=== PATIENT | male | born 1960 | race Caucasian/White ===

== ENCOUNTER 2023-01-08 15:27 | Inpatient (IN) | payer OTHER ==
[2023-01-08 16:34] VITALS: BMI 26.0
[2023-01-08] MEDS ORDERED: NICOTINE POLACRILEX 2 MG GUM BUC PRN (20:31)
[2023-01-08] MEDS ORDERED: ACETAMINOPHEN 325 MG TABLET (FP) PO PRN (20:31)
[2023-01-08] MEDS ORDERED: LOPERAMIDE HCL 2 MG CAPSULE PO PRN (20:31)
[2023-01-08] MEDS ORDERED: guaiFENesin 600 MG TABLET.ER (FP) PO PRN (20:31)
[2023-01-08] MEDS ORDERED: IBUPROFEN 600 MG TABLET (FP) PO PRN (20:31)
[2023-01-08] MEDS ORDERED: POLYETHYLENE GLYCOL (HEALTHYLAX) 3350 17 GM PACKET PO PRN (20:31)
[2023-01-08] MEDS ORDERED: AMMONIUM LACTATE 12% LOTION 225 GM BOTTLE TP PRN (20:31)
[2023-01-08] MEDS ORDERED: P-EPHED 60MG/TRIPROLIDI 2.5MG TABLET PO PRN (20:31)
[2023-01-08] MEDS ORDERED: MAGNESIUM HYDROX 2400MG/30ML ORAL SUSPENSION 30 ML CUP PO PRN (20:31)
[2023-01-08] MEDS ORDERED: IBUPROFEN 400 MG TABLET (FP) PO PRN (20:31)
[2023-01-08] MEDS ORDERED: COLLOIDAL OATMEAL 1 BAR EACH TP PRN (20:31)
[2023-01-08] MEDS ORDERED: BENZOCAINE/MENTHOL (CHLORASEPTIC ) LOZENGE MM PRN (20:31)
[2023-01-08] MEDS ORDERED: hydrOXYzine PAMOATE 25 MG CAPSULE (FP) PO PRN (20:31)
[2023-01-08] MEDS ORDERED: BENZONATATE 200 MG CAPSULE PO PRN (20:31)
[2023-01-08] MEDS ORDERED: DOXEPIN HCL 50 MG CAPSULE PO ONE (22:00)
[2023-01-08] MEDS ORDERED: QUEtiapine FUMARATE 50 MG TABLET PO ONE (22:00)
[2023-01-08] MEDS ORDERED: DOXEPIN HCL 25 MG CAPSULE PO ONE (22:00)
[2023-01-08] MEDS ORDERED: TUBERCULIN PPD 5 TU/0.1ML VIAL ID ONE (22:10)
[2023-01-08] MEDS: MELATONIN 5 MG TABLETS PO SCH (22:13)
[2023-01-08] MEDS: ATORVASTATIN CA 10 MG TABLET (FP) PO SCH (22:13)
[2023-01-08] MEDS: THIAMINE HCL 100 MG TABLET (FP) PO SCH (22:13)
[2023-01-08] MEDS ORDERED: TUBERCULIN PPD 5 TU/0.1ML SYRINGE (IN PATIENT USE ONLY) ID ONE (23:00)
[2023-01-09] MEDS: BICTEGRAV/EMTRICIT/TENOFOV (BIKTARVY) 50-200-25 MG TABLET PO SCH (07:27)
[2023-01-09] MEDS ORDERED: LOSARTAN POTASSIUM 25 MG TABLET PO SCH (10:00)
[2023-01-09] MEDS: PRENATAL VITAMINS W/ FOLIC ACID TABLET (FP) PO SCH (10:21)
[2023-01-09 11:04] LABS: HEMATOCRIT 41.1 % (35.4-49); HEMOGLOBIN 13.6 GM/dL (11.7-16.9); MCH 28.4 pg (25.7-33.7); MEAN CELL VOLUME 86.1 fl (80-96); MEAN PLT VOLUME 8.3 fl (7.5-11.1); PLATELET COUNT 150 10^3/uL (134-434); RBC 4.77 M/mm3 (4.00-5.60); RDW 13.8 % (11.9-15.9); WHITE BLOOD COUNT 3.2 K/mm3 (4.0-10.0)
[2023-01-09 11:53] LABS: CALCIUM 8.9 mg/dL (8.5-10.1)
[2023-01-09 11:54] LABS: ALBUMIN 3.1 g/dl (3.4-5.0); BLOOD UREA NITROGEN 19.9 mg/dL (7-18)
[2023-01-09 11:57] LABS: CREATININE 0.9 mg/dL (0.55-1.3)
[2023-01-09 11:59] LABS: BILIRUBIN,TOTAL 0.4 mg/dL (0.2-1); TOT PROT 6.3 g/dl (6.4-8.2)
[2023-01-09] MEDS: DIVALPROEX SODIUM 500 MG TABLET E.C. PO SCH (21:21)
[2023-01-09] MEDS: ATORVASTATIN CA 10 MG TABLET (FP) PO SCH (21:21)
[2023-01-09] MEDS: DOXEPIN HCL 25 MG CAPSULE PO SCH (21:21)
[2023-01-09] MEDS: MELATONIN 5 MG TABLETS PO SCH (21:23)
[2023-01-09] MEDS: THIAMINE HCL 100 MG TABLET (FP) PO SCH (21:23)
[2023-01-09] MEDS: QUEtiapine FUMARATE 50 MG TABLET PO SCH (21:23)
[2023-01-09] MEDS: HALOPERIDOL 5 MG TABLET PO SCH (21:23)
[2023-01-09] MEDS: BENZTROPINE MESYLATE 1 MG TABLET PO SCH (21:24)
[2023-01-09] MEDS ORDERED: DIVALPROEX NA *ER* EXTEND REL 500 MG TABLET.SA (FP) PO SCH (22:00)
[2023-01-10] MEDS: BICTEGRAV/EMTRICIT/TENOFOV (BIKTARVY) 50-200-25 MG TABLET PO SCH (07:14)
[2023-01-10] MEDS: PRENATAL VITAMINS W/ FOLIC ACID TABLET (FP) PO SCH (10:21)
[2023-01-10] MEDS: MELATONIN 5 MG TABLETS PO SCH (21:19)
[2023-01-10] MEDS: HALOPERIDOL 5 MG TABLET PO SCH (21:19)
[2023-01-10] MEDS: THIAMINE HCL 100 MG TABLET (FP) PO SCH (21:20)
[2023-01-10] MEDS: BENZTROPINE MESYLATE 1 MG TABLET PO SCH (21:20)
[2023-01-10] MEDS: ATORVASTATIN CA 10 MG TABLET (FP) PO SCH (21:20)
[2023-01-10] MEDS: QUEtiapine FUMARATE 50 MG TABLET PO SCH (21:20)
[2023-01-10] MEDS: DIVALPROEX SODIUM 500 MG TABLET E.C. PO SCH (21:20)
[2023-01-10] MEDS: LOSARTAN POTASSIUM 25 MG TABLET PO SCH (21:20)
[2023-01-10] MEDS: DOXEPIN HCL 25 MG CAPSULE PO SCH (23:50)
[2023-01-11] MEDS: BICTEGRAV/EMTRICIT/TENOFOV (BIKTARVY) 50-200-25 MG TABLET PO SCH (07:06)
[2023-01-11] MEDS: PRENATAL VITAMINS W/ FOLIC ACID TABLET (FP) PO SCH (10:12)
[2023-01-11 12:16] LABS: URINE APPEARANCE CLEAR; URINE BILIRUBIN NEGATIVE (NEGATIVE); URINE COLOR YELLOW; URINE GLUCOSE (UA) NEGATIVE (NEGATIVE); URINE KETONE NEGATIVE (NEGATIVE); URINE LEUK ESTERASE NEGATIVE (NEGATIVE); URINE NITRITE NEGATIVE (NEGATIVE); URINE PROTEIN NEGATIVE (NEGATIVE); URINE UROBILINOGEN 0.2 mg/dL (0.2-1.0)
[2023-01-11] MEDS: DIVALPROEX SODIUM 500 MG TABLET E.C. PO SCH (21:37)
[2023-01-11] MEDS: ATORVASTATIN CA 10 MG TABLET (FP) PO SCH (21:37)
[2023-01-11] MEDS: LOSARTAN POTASSIUM 25 MG TABLET PO SCH (21:38)
[2023-01-11] MEDS: MELATONIN 5 MG TABLETS PO SCH (21:38)
[2023-01-11] MEDS: HALOPERIDOL 5 MG TABLET PO SCH (21:38)
[2023-01-11] MEDS: THIAMINE HCL 100 MG TABLET (FP) PO SCH (21:38)
[2023-01-11] MEDS: QUEtiapine FUMARATE 50 MG TABLET PO SCH (21:38)
[2023-01-11] MEDS: DOXEPIN HCL 25 MG CAPSULE PO SCH (21:38)
[2023-01-11] MEDS: BENZTROPINE MESYLATE 1 MG TABLET PO SCH (21:38)
[2023-01-12] MEDS: BICTEGRAV/EMTRICIT/TENOFOV (BIKTARVY) 50-200-25 MG TABLET PO SCH (07:20)
[2023-01-12] MEDS: PRENATAL VITAMINS W/ FOLIC ACID TABLET (FP) PO SCH (10:06)
[2023-01-12] MEDS: HALOPERIDOL 5 MG TABLET PO SCH (21:10)
[2023-01-12] MEDS: DIVALPROEX SODIUM 500 MG TABLET E.C. PO SCH (21:10)
[2023-01-12] MEDS: BENZTROPINE MESYLATE 1 MG TABLET PO SCH (21:10)
[2023-01-12] MEDS: DOXEPIN HCL 25 MG CAPSULE PO SCH (21:10)
[2023-01-12] MEDS: ATORVASTATIN CA 10 MG TABLET (FP) PO SCH (21:10)
[2023-01-12] MEDS: QUEtiapine FUMARATE 50 MG TABLET PO SCH (21:11)
[2023-01-12] MEDS: LOSARTAN POTASSIUM 25 MG TABLET PO SCH (21:11)
[2023-01-12] MEDS: MELATONIN 5 MG TABLETS PO SCH (21:12)
[2023-01-12] MEDS: THIAMINE HCL 100 MG TABLET (FP) PO SCH (21:12)
[2023-01-13] MEDS: BICTEGRAV/EMTRICIT/TENOFOV (BIKTARVY) 50-200-25 MG TABLET PO SCH (07:09)
[2023-01-13] MEDS: PRENATAL VITAMINS W/ FOLIC ACID TABLET (FP) PO SCH (10:17)
[2023-01-13] MEDS: DIVALPROEX SODIUM 500 MG TABLET E.C. PO SCH (21:01)
[2023-01-13] MEDS: LOSARTAN POTASSIUM 25 MG TABLET PO SCH (21:01)
[2023-01-13] MEDS: DOXEPIN HCL 25 MG CAPSULE PO SCH (21:01)
[2023-01-13] MEDS: BENZTROPINE MESYLATE 1 MG TABLET PO SCH (21:02)
[2023-01-13] MEDS: THIAMINE HCL 100 MG TABLET (FP) PO SCH (21:02)
[2023-01-13] MEDS: ATORVASTATIN CA 10 MG TABLET (FP) PO SCH (21:02)
[2023-01-13] MEDS: MELATONIN 5 MG TABLETS PO SCH (21:02)
[2023-01-13] MEDS: QUEtiapine FUMARATE 50 MG TABLET PO SCH (21:02)
[2023-01-13] MEDS: HALOPERIDOL 5 MG TABLET PO SCH (21:02)
[2023-01-14] MEDS: BICTEGRAV/EMTRICIT/TENOFOV (BIKTARVY) 50-200-25 MG TABLET PO SCH (07:06)
[2023-01-14] MEDS: PRENATAL VITAMINS W/ FOLIC ACID TABLET (FP) PO SCH (10:13)
[2023-01-14] MEDS: MELATONIN 5 MG TABLETS PO SCH (21:43)
[2023-01-14] MEDS: THIAMINE HCL 100 MG TABLET (FP) PO SCH (21:44)
[2023-01-14] MEDS: HALOPERIDOL 5 MG TABLET PO SCH (21:44)
[2023-01-14] MEDS: ATORVASTATIN CA 10 MG TABLET (FP) PO SCH (21:44)
[2023-01-14] MEDS: BENZTROPINE MESYLATE 1 MG TABLET PO SCH (21:44)
[2023-01-14] MEDS: QUEtiapine FUMARATE 50 MG TABLET PO SCH (21:44)
[2023-01-14] MEDS: LOSARTAN POTASSIUM 25 MG TABLET PO SCH (21:45)
[2023-01-14] MEDS: DIVALPROEX SODIUM 500 MG TABLET E.C. PO SCH (21:45)
[2023-01-14] MEDS: DOXEPIN HCL 25 MG CAPSULE PO SCH (21:47)
[2023-01-15] MEDS: BICTEGRAV/EMTRICIT/TENOFOV (BIKTARVY) 50-200-25 MG TABLET PO SCH (07:09)
[2023-01-15] MEDS: PRENATAL VITAMINS W/ FOLIC ACID TABLET (FP) PO SCH (10:17)
[2023-01-15] MEDS: LOSARTAN POTASSIUM 25 MG TABLET PO SCH (21:22)
[2023-01-15] MEDS: ATORVASTATIN CA 10 MG TABLET (FP) PO SCH (21:22)
[2023-01-15] MEDS: DIVALPROEX SODIUM 500 MG TABLET E.C. PO SCH (21:22)
[2023-01-15] MEDS: THIAMINE HCL 100 MG TABLET (FP) PO SCH (21:23)
[2023-01-15] MEDS: MELATONIN 5 MG TABLETS PO SCH (21:23)
[2023-01-15] MEDS: QUEtiapine FUMARATE 50 MG TABLET PO SCH (21:23)
[2023-01-15] MEDS: BENZTROPINE MESYLATE 1 MG TABLET PO SCH (21:23)
[2023-01-15] MEDS: HALOPERIDOL 5 MG TABLET PO SCH (21:23)
[2023-01-15] MEDS: DOXEPIN HCL 25 MG CAPSULE PO SCH (23:50)
[2023-01-16] MEDS: BICTEGRAV/EMTRICIT/TENOFOV (BIKTARVY) 50-200-25 MG TABLET PO SCH (07:06)
[2023-01-16] MEDS: PRENATAL VITAMINS W/ FOLIC ACID TABLET (FP) PO SCH (10:01)
[2023-01-16] MEDS: ATORVASTATIN CA 10 MG TABLET (FP) PO SCH (21:09)
[2023-01-16] MEDS: BENZTROPINE MESYLATE 1 MG TABLET PO SCH (21:09)
[2023-01-16] MEDS: DIVALPROEX SODIUM 500 MG TABLET E.C. PO SCH (21:09)
[2023-01-16] MEDS: QUEtiapine FUMARATE 50 MG TABLET PO SCH (21:09)
[2023-01-16] MEDS: DOXEPIN HCL 25 MG CAPSULE PO SCH (21:10)
[2023-01-16] MEDS: THIAMINE HCL 100 MG TABLET (FP) PO SCH (21:10)
[2023-01-16] MEDS: HALOPERIDOL 5 MG TABLET PO SCH (21:10)
[2023-01-16] MEDS: LOSARTAN POTASSIUM 25 MG TABLET PO SCH (21:10)
[2023-01-16] MEDS: MELATONIN 5 MG TABLETS PO SCH (21:12)
[2023-01-17] MEDS: BICTEGRAV/EMTRICIT/TENOFOV (BIKTARVY) 50-200-25 MG TABLET PO SCH (07:26)
[2023-01-17] MEDS: PRENATAL VITAMINS W/ FOLIC ACID TABLET (FP) PO SCH (09:21)
[2023-01-17] MEDS: DOXEPIN HCL 25 MG CAPSULE PO SCH (21:02)
[2023-01-17] MEDS: DIVALPROEX SODIUM 500 MG TABLET E.C. PO SCH (21:02)
[2023-01-17] MEDS: HALOPERIDOL 5 MG TABLET PO SCH (21:03)
[2023-01-17] MEDS: ATORVASTATIN CA 10 MG TABLET (FP) PO SCH (21:03)
[2023-01-17] MEDS: LOSARTAN POTASSIUM 25 MG TABLET PO SCH (21:03)
[2023-01-17] MEDS: QUEtiapine FUMARATE 50 MG TABLET PO SCH (21:03)
[2023-01-17] MEDS: THIAMINE HCL 100 MG TABLET (FP) PO SCH (21:04)
[2023-01-17] MEDS: MELATONIN 5 MG TABLETS PO SCH (21:04)
[2023-01-17] MEDS: BENZTROPINE MESYLATE 1 MG TABLET PO SCH (21:04)
[2023-01-18] MEDS: BICTEGRAV/EMTRICIT/TENOFOV (BIKTARVY) 50-200-25 MG TABLET PO SCH (07:50)
[2023-01-18] MEDS: PRENATAL VITAMINS W/ FOLIC ACID TABLET (FP) PO SCH (09:39)
[2023-01-18] MEDS: DIVALPROEX SODIUM 500 MG TABLET E.C. PO SCH (21:05)
[2023-01-18] MEDS: BENZTROPINE MESYLATE 1 MG TABLET PO SCH (21:05)
[2023-01-18] MEDS: HALOPERIDOL 5 MG TABLET PO SCH (21:05)
[2023-01-18] MEDS: LOSARTAN POTASSIUM 25 MG TABLET PO SCH (21:05)
[2023-01-18] MEDS: QUEtiapine FUMARATE 50 MG TABLET PO SCH (21:05)
[2023-01-18] MEDS: ATORVASTATIN CA 10 MG TABLET (FP) PO SCH (21:05)
[2023-01-18] MEDS: MELATONIN 5 MG TABLETS PO SCH (21:05)
[2023-01-18] MEDS: THIAMINE HCL 100 MG TABLET (FP) PO SCH (21:05)
[2023-01-18] MEDS: DOXEPIN HCL 25 MG CAPSULE PO SCH (21:05)
[2023-01-19] MEDS: BICTEGRAV/EMTRICIT/TENOFOV (BIKTARVY) 50-200-25 MG TABLET PO SCH (07:14)
[2023-01-19] MEDS: PRENATAL VITAMINS W/ FOLIC ACID TABLET (FP) PO SCH (09:43)
[2023-01-19] MEDS: MELATONIN 5 MG TABLETS PO SCH (21:22)
[2023-01-19] MEDS: THIAMINE HCL 100 MG TABLET (FP) PO SCH (21:22)
[2023-01-19] MEDS: DOXEPIN HCL 25 MG CAPSULE PO SCH (21:23)
[2023-01-19] MEDS: BENZTROPINE MESYLATE 1 MG TABLET PO SCH (21:23)
[2023-01-19] MEDS: QUEtiapine FUMARATE 50 MG TABLET PO SCH (21:23)
[2023-01-19] MEDS: LOSARTAN POTASSIUM 25 MG TABLET PO SCH (21:23)
[2023-01-19] MEDS: HALOPERIDOL 5 MG TABLET PO SCH (21:23)
[2023-01-19] MEDS: ATORVASTATIN CA 10 MG TABLET (FP) PO SCH (21:23)
[2023-01-19] MEDS: DIVALPROEX SODIUM 500 MG TABLET E.C. PO SCH (21:25)
[2023-01-20] MEDS: BICTEGRAV/EMTRICIT/TENOFOV (BIKTARVY) 50-200-25 MG TABLET PO SCH (07:00)
[2023-01-20] MEDS: PRENATAL VITAMINS W/ FOLIC ACID TABLET (FP) PO SCH (09:49)
[2023-01-20] MEDS: BENZTROPINE MESYLATE 1 MG TABLET PO SCH (21:09)
[2023-01-20] MEDS: DIVALPROEX SODIUM 500 MG TABLET E.C. PO SCH (21:09)
[2023-01-20] MEDS: ATORVASTATIN CA 10 MG TABLET (FP) PO SCH (21:09)
[2023-01-20] MEDS: QUEtiapine FUMARATE 50 MG TABLET PO SCH (21:09)
[2023-01-20] MEDS: HALOPERIDOL 5 MG TABLET PO SCH (21:09)
[2023-01-20] MEDS: LOSARTAN POTASSIUM 25 MG TABLET PO SCH (21:09)
[2023-01-20] MEDS: THIAMINE HCL 100 MG TABLET (FP) PO SCH (21:10)
[2023-01-20] MEDS: MELATONIN 5 MG TABLETS PO SCH (21:10)
[2023-01-20] MEDS: DOXEPIN HCL 25 MG CAPSULE PO SCH (21:10)
[2023-01-21] MEDS: BICTEGRAV/EMTRICIT/TENOFOV (BIKTARVY) 50-200-25 MG TABLET PO SCH (07:04)
[2023-01-21] MEDS: PRENATAL VITAMINS W/ FOLIC ACID TABLET (FP) PO SCH (09:16)
[2023-01-21] MEDS: MELATONIN 5 MG TABLETS PO SCH (21:00)
[2023-01-21] MEDS: THIAMINE HCL 100 MG TABLET (FP) PO SCH (21:00)
[2023-01-21] MEDS: ATORVASTATIN CA 10 MG TABLET (FP) PO SCH (21:01)
[2023-01-21] MEDS: DOXEPIN HCL 25 MG CAPSULE PO SCH (21:01)
[2023-01-21] MEDS: LOSARTAN POTASSIUM 25 MG TABLET PO SCH (21:01)
[2023-01-21] MEDS: DIVALPROEX SODIUM 500 MG TABLET E.C. PO SCH (21:01)
[2023-01-21] MEDS: BENZTROPINE MESYLATE 1 MG TABLET PO SCH (21:01)
[2023-01-21] MEDS: QUEtiapine FUMARATE 50 MG TABLET PO SCH (21:01)
[2023-01-21] MEDS: HALOPERIDOL 5 MG TABLET PO SCH (21:01)
[2023-01-22] MEDS: BICTEGRAV/EMTRICIT/TENOFOV (BIKTARVY) 50-200-25 MG TABLET PO SCH (07:36)
[2023-01-22] MEDS: PRENATAL VITAMINS W/ FOLIC ACID TABLET (FP) PO SCH (10:31)
[2023-01-22] MEDS: DOXEPIN HCL 25 MG CAPSULE PO SCH (21:16)
[2023-01-22] MEDS: ATORVASTATIN CA 10 MG TABLET (FP) PO SCH (21:16)
[2023-01-22] MEDS: DIVALPROEX SODIUM 500 MG TABLET E.C. PO SCH (21:16)
[2023-01-22] MEDS: HALOPERIDOL 5 MG TABLET PO SCH (21:17)
[2023-01-22] MEDS: LOSARTAN POTASSIUM 25 MG TABLET PO SCH (21:17)
[2023-01-22] MEDS: THIAMINE HCL 100 MG TABLET (FP) PO SCH (21:17)
[2023-01-22] MEDS: BENZTROPINE MESYLATE 1 MG TABLET PO SCH (21:17)
[2023-01-22] MEDS: MELATONIN 5 MG TABLETS PO SCH (21:17)
[2023-01-22] MEDS: QUEtiapine FUMARATE 50 MG TABLET PO SCH (21:17)
[2023-01-22] MEDS: MAG HYDROX/AL HYDROX/SIMETH 30 ML UNIT-DOSE CUP PO PRN (22:05)
[2023-01-23] MEDS: BICTEGRAV/EMTRICIT/TENOFOV (BIKTARVY) 50-200-25 MG TABLET PO SCH (07:12)
[2023-01-23] MEDS: PRENATAL VITAMINS W/ FOLIC ACID TABLET (FP) PO SCH (09:45)
[2023-01-23] MEDS: VARENICLINE TARTRATE 0.5 MG TAB PO SCH (10:23)
[2023-01-23] MEDS: MAG HYDROX/AL HYDROX/SIMETH 30 ML UNIT-DOSE CUP PO PRN (18:50)
[2023-01-23] MEDS: DOXEPIN HCL 25 MG CAPSULE PO SCH (21:14)
[2023-01-23] MEDS: ATORVASTATIN CA 10 MG TABLET (FP) PO SCH (21:14)
[2023-01-23] MEDS: BENZTROPINE MESYLATE 1 MG TABLET PO SCH (21:14)
[2023-01-23] MEDS: THIAMINE HCL 100 MG TABLET (FP) PO SCH (21:14)
[2023-01-23] MEDS: QUEtiapine FUMARATE 100 MG TABLET (FP) PO SCH (21:15)
[2023-01-23] MEDS: DIVALPROEX SODIUM 500 MG TABLET E.C. PO SCH (21:15)
[2023-01-23] MEDS: HALOPERIDOL 5 MG TABLET PO SCH (21:15)
[2023-01-23] MEDS: LOSARTAN POTASSIUM 25 MG TABLET PO SCH (21:15)
[2023-01-23] MEDS: MELATONIN 5 MG TABLETS PO SCH (21:15)
[2023-01-24] MEDS: BICTEGRAV/EMTRICIT/TENOFOV (BIKTARVY) 50-200-25 MG TABLET PO SCH (07:28)
[2023-01-24] MEDS: VARENICLINE TARTRATE 0.5 MG TAB PO SCH (10:57)
[2023-01-24] MEDS: PRENATAL VITAMINS W/ FOLIC ACID TABLET (FP) PO SCH (10:58)
[2023-01-24] MEDS: DIVALPROEX SODIUM 500 MG TABLET E.C. PO SCH (21:18)
[2023-01-24] MEDS: MELATONIN 5 MG TABLETS PO SCH (21:18)
[2023-01-24] MEDS: DOXEPIN HCL 25 MG CAPSULE PO SCH (21:18)
[2023-01-24] MEDS: THIAMINE HCL 100 MG TABLET (FP) PO SCH (21:18)
[2023-01-24] MEDS: BENZTROPINE MESYLATE 1 MG TABLET PO SCH (21:19)
[2023-01-24] MEDS: QUEtiapine FUMARATE 100 MG TABLET (FP) PO SCH (21:19)
[2023-01-24] MEDS: ATORVASTATIN CA 10 MG TABLET (FP) PO SCH (21:19)
[2023-01-24] MEDS: LOSARTAN POTASSIUM 25 MG TABLET PO SCH (21:19)
[2023-01-24] MEDS: HALOPERIDOL 5 MG TABLET PO SCH (21:19)
[2023-01-25] MEDS: BICTEGRAV/EMTRICIT/TENOFOV (BIKTARVY) 50-200-25 MG TABLET PO SCH (07:13)
[2023-01-25] MEDS: PRENATAL VITAMINS W/ FOLIC ACID TABLET (FP) PO SCH (09:29)
[2023-01-25] MEDS: VARENICLINE TARTRATE 0.5 MG TAB PO SCH (09:29)
[2023-01-25] MEDS: DOXEPIN HCL 25 MG CAPSULE PO SCH (21:15)
[2023-01-25] MEDS: HALOPERIDOL 5 MG TABLET PO SCH (21:15)
[2023-01-25] MEDS: BENZTROPINE MESYLATE 1 MG TABLET PO SCH (21:15)
[2023-01-25] MEDS: ATORVASTATIN CA 10 MG TABLET (FP) PO SCH (21:15)
[2023-01-25] MEDS: QUEtiapine FUMARATE 100 MG TABLET (FP) PO SCH (21:15)
[2023-01-25] MEDS: DIVALPROEX SODIUM 500 MG TABLET E.C. PO SCH (21:15)
[2023-01-25] MEDS: MELATONIN 5 MG TABLETS PO SCH (21:16)
[2023-01-25] MEDS: LOSARTAN POTASSIUM 25 MG TABLET PO SCH (21:16)
[2023-01-25] MEDS: THIAMINE HCL 100 MG TABLET (FP) PO SCH (21:16)
[2023-01-26 06:56] VITALS: RESP 18; TEMP 97.1
[2023-01-26] MEDS: BICTEGRAV/EMTRICIT/TENOFOV (BIKTARVY) 50-200-25 MG TABLET PO SCH (07:40)
[2023-01-26] MEDS: PRENATAL VITAMINS W/ FOLIC ACID TABLET (FP) PO SCH (10:26)
[2023-01-26] MEDS: VARENICLINE TARTRATE 0.5 MG TAB PO SCH (10:26)
[2023-01-26] MEDS: MAG HYDROX/AL HYDROX/SIMETH 30 ML UNIT-DOSE CUP PO PRN (17:25)
[2023-01-26] MEDS: DIVALPROEX SODIUM 500 MG TABLET E.C. PO SCH (21:01)
[2023-01-26] MEDS: ATORVASTATIN CA 10 MG TABLET (FP) PO SCH (21:01)
[2023-01-26] MEDS: MELATONIN 5 MG TABLETS PO SCH (21:01)
[2023-01-26] MEDS: HALOPERIDOL 5 MG TABLET PO SCH (21:01)
[2023-01-26] MEDS: QUEtiapine FUMARATE 100 MG TABLET (FP) PO SCH (21:01)
[2023-01-26] MEDS: THIAMINE HCL 100 MG TABLET (FP) PO SCH (21:02)
[2023-01-26] MEDS: DOXEPIN HCL 25 MG CAPSULE PO SCH (21:02)
[2023-01-26] MEDS: BENZTROPINE MESYLATE 1 MG TABLET PO SCH (21:02)
[2023-01-26] MEDS: LOSARTAN POTASSIUM 25 MG TABLET PO SCH (21:02)
[2023-01-27] MEDS: BICTEGRAV/EMTRICIT/TENOFOV (BIKTARVY) 50-200-25 MG TABLET PO SCH (07:15)
[2023-01-27 08:37] VITALS: BP 118/83; PULSE 73
[2023-01-27] MEDS ORDERED: VARENICLINE TARTRATE 0.5 MG TAB PO SCH (10:00)
[2023-01-31] MEDS ORDERED: VARENICLINE TARTRATE 1 MG TAB PO SCH (10:00)
== END 2023-01-27 09:18 | disposition home or self-care (01) | DRG 895 ==
LOC: YASAS 15:27 → Y3W 21:10
PROVIDERS: ADMIT Allergy & Immunology; ATTEND Psychiatry & Neurology Pain Medicine
PROC: HZ42ZZZ Group Counseling for Substance Abuse Treatment, Cognitive-Behavioral (ICD-10-PCS; principal; 2023-01-08)
DX: F14.20 Cocaine dependence, uncomplicated (principal); F17.210 Nicotine dependence, cigarettes, uncomplicated; F31.9 Bipolar disorder, unspecified; Z21 Asymptomatic human immunodeficiency virus [HIV] infection status; E78.5 Hyperlipidemia, unspecified; W01.0XXA Fall on same level from slipping, tripping and stumbling without subsequent striking against object, initial encounter; Y92.230 Patient room in hospital as the place of occurrence of the external cause
CPT/HCPCS: 36415; 80053; 80164; 81003; 85027; 86780; 87635; 93005; 93010